=== PATIENT | female | born 1970 | race Two or more races ===

== ENCOUNTER → 2021-02-28 07:23 | Outpatient (CLI) | payer OTHER | END | disposition home or self-care (01) | LOC: PPH VACUNA 07:23 | DX: Z23 Encounter for immunization (principal) ==

== ENCOUNTER 2021-03-21 | Outpatient (CLI) | payer OTHER | END 2021-03-21 12:52 | disposition home or self-care (01) | LOC: PPH VACUNA | DX: Z23 Encounter for immunization (principal) ==